=== PATIENT | female | born 1930 | race Caucasian/White ===

== ENCOUNTER 2016-12-27 06:27 | Inpatient (IN) | payer MEDICARE, BC ==
[~2016-12-27] VITALS: Ht 162.6 cm; Wt 67.3 kg
[~2016-12-27 06:27] MED LIST: ACET-2605 PO; ACYC5CRE2 TP; BIMA2.5D5 EACHEYE; BRIM5DRO2 EACHEYE; CALC-20 PO; CITA10TA9 PO; CYAN10009 PO; DONE10TA4 PO; VALS1TAB2 PO
[2016-12-27 07:11] LABS: BASOPHILS % (AUTO) 0.1 % (0.0-2.0); DIFF TOTAL % 100 %; EOSINOPHILS # (AUTO) 0.3 /CMM (0.0-0.7); EOSINOPHILS % (AUTO) 2.4 % (0.0-6.0); HEMATOCRIT 37 % (33-45); HEMOGLOBIN 12.7 g/dL (11.5-14.8); LYMPHOCYTES # (AUTO) 0.6 /CMM (0.8-4.8); LYMPHOCYTES % (AUTO) 5.2 % (20.0-44.0); MEAN CORPUSCULAR HEMOGLOBIN 33 PG (26.0-33.0); MEAN CORPUSCULAR HGB CONC 34 g/dl (31.0-36.0); MEAN CORPUSCULAR VOLUME 95 fL (82-100); MONOCYTES # (AUTO) 0.6 /CMM (0.1-1.30); MONOCYTES % (AUTO) 5.3 % (2.0-12.0); NEUTROPHILS # (AUTO) 9.8 /CMM (1.8-8.9); PLATELET COUNT (AUTO) 266 /CMM (150-450); WHITE BLOOD COUNT (AUTO) 11.3 K/uL (4.3-11.0)
[2016-12-27 07:13] LABS: KETONES,URINE NEGATIVE (NEGATIVE); LEUKOCYTE ESTERASE ,URINE NEGATIVE (NEGATIVE)
[2016-12-27 07:15] LABS: ALANINE AMINOTRANSFERASE 44 U/L (12-78); ALBUMIN 2.9 g/dL (3.4-5.0); ANION GAP 12 (5-14); ASPARTATE AMINOTRANSFERASE 36 U/L (15-37); BILIRUBIN,DIRECT 0.1 mg/dL (0.0-0.2); BILIRUBIN,TOTAL 0.5 mg/dL (0.2-1.0); CARBON DIOXIDE 29 mmol/L (21-32); CHLORIDE 100 mmol/L (98-107); GLUCOSE 124 mg/dL (74-106); INDIRECT BILIRUBIN 0.4 mg/dL (0.0-1.1); SODIUM SERUM 138 mmol/L (136-145); TOTAL PROTEIN, SERUM 6.8 g/dL (6.4-8.2); UREA NITROGEN, BLOOD 23 mg/dL (7-18)
[2016-12-27 07:17] LABS: TROPONIN I < 0.017 ng/mL (0.00-0.056)
[2016-12-27 07:17] LABS: ADD UA MICROSCOPIC YES
[2016-12-27 07:18] LABS: PROTHROMBIN TIME 10.8 SECS (9.5-12.7)
[2016-12-27 07:35] LABS: ADD URINE CULTURE YES; MUCUS,URINE Few /LPF (None Seen); RBC,URINE 0-2 /HPF (0-2)
[2016-12-27 07:37] LABS: POTASSIUM 2.8 mmol/L (3.5-5.1)
[2016-12-27] MEDS ORDERED: POTASSIUM CHLORIDE 20 MEQ TAB.PRT.SR PO ONE ×2 (08:00→08:02)
[2016-12-27] MEDS ORDERED: CYAN25008 SL (08:31)
[2016-12-27] MEDS ORDERED: TRAM50TA2 PO (08:31)
[2016-12-27] MEDS ORDERED: POLY17PO4 PO (08:31)
[2016-12-27] MEDS ORDERED: MUPI22OI7 TP (08:31)
[2016-12-27] MEDS ORDERED: [UNRECOGNIZED DRUG - CODE] PO (08:31)
[2016-12-27] MEDS ORDERED: CITA20TA19 PO (08:31)
[2016-12-27] MEDS ORDERED: LOPE-156 PO (08:31)
[2016-12-27] MEDS ORDERED: HYDR12.55 PO (08:31)
[2016-12-27] MEDS ORDERED: ASPI81TA2 PO (08:31)
[2016-12-27] MEDS ORDERED: SENN8.6T6 PO (08:31)
[2016-12-27] MEDS ORDERED: VALS80TA2 PO (08:31)
[2016-12-27] MEDS ORDERED: CEFTRIAXONE 1GM BAG (ER ONLY) 50 ML IV ONE (08:41)
[2016-12-27] MEDS ORDERED: IV SET PRIMARY 1 EA INFUS.SET MC ONE (08:42)
[2016-12-27] MEDS ORDERED: CEFTRIAXONE 1GM BAG (ER ONLY) 1 GM/50 ML PIGGYBACK IV ONE (09:00)
[2016-12-27 11:00] VITALS: BP 154/79
[2016-12-27] MEDS ORDERED: SENNOSIDES 8.6 MG TABLET PO PRN (11:30)
[2016-12-27] MEDS ORDERED: LOPERAMIDE HCL (2 MG CAP) 2 MG CAPSULE PO PRN (11:30)
[2016-12-27] MEDS ORDERED: POLYETHYLENE GLYCOL 3350 17 GM POWD.PACK PO PRN (11:30)
[2016-12-27] MEDS ORDERED: TRAMADOL HCL 50 MG TABLET PO PRN (11:30)
[2016-12-27] MEDS ORDERED: IV SET PRIMARY PUMP SET 1 EA INFUS.SET MC ONE (11:58)
[2016-12-27] MEDS ORDERED: ACETAMINOPHEN ES 500 MG TABLET PO PRN (12:00)
[2016-12-27] MEDS: CYANOCOBALAMIN 500 MCG TABLET PO SCH (13:42)
[2016-12-27] MEDS: ASPIRIN 81 MG TAB.CHEW PO SCH (13:43)
[2016-12-27] MEDS: VALSARTAN 80 MG TABLET PO SCH (13:43)
[2016-12-27] MEDS: HYDROCHLOROTHIAZIDE 25 MG TABLET PO SCH (13:44)
[2016-12-27] MEDS: CITALOPRAM HYDROBROMIDE 20 MG TABLET PO SCH (13:45)
[2016-12-27 16:00] VITALS: BP 156/99
[2016-12-27] MEDS ORDERED: BRIMONIDINE TARTRATE EACHEYE SCH (17:00)
[2016-12-27] MEDS ORDERED: TIMOLOL EACHEYE SCH (17:00)
[2016-12-27] MEDS: TIMOLOL 0.5% SOLN OPHTH 5 ML BOTTLE EACHEYE SCH (17:39)
[2016-12-27] MEDS: MUPIROCIN OINT 2% 22 GM TUBE TP SCH (17:40)
[2016-12-27] MEDS: BRIMONIDINE TARTRATE OPHT SOLN 5 ML BOTTLE EACHEYE SCH (17:40)
[2016-12-27] MEDS: CALCIUM CARB 600MG /VIT D 1 EACH TABLET PO SCH (17:40)
[2016-12-27] MEDS ORDERED: BIMATOPROST 2.5 ML BOTTLE EACHEYE SCH (18:00)
[2016-12-27] MEDS: DONEPEZIL 5 MG TABLET PO SCH (18:51)
[2016-12-27] MEDS: LATANOPROST EYE DROP 0.005% 2.5 ML BOTTLE EACHEYE SCH (18:52)
[2016-12-27 20:00] VITALS: BP 158/73
[2016-12-28 04:00] VITALS: BP 154/72
[2016-12-28] MEDS: KCL IV PRN ×4 (04:31→19:47)
[2016-12-28] MEDS: D5 IV PRN ×4 (04:31→19:47)
[2016-12-28] MEDS: NS IV PRN ×4 (04:31→19:47)
[2016-12-28 06:53] LABS: BASOPHILS # (AUTO) 0.1 /CMM (0.0-0.2); BASOPHILS % (AUTO) 0.7 % (0.0-2.0); DIFF TOTAL % 100 %; EOSINOPHILS # (AUTO) 0.2 /CMM (0.0-0.7); HEMATOCRIT 38 % (33-45); HEMOGLOBIN 12.6 g/dL (11.5-14.8); LYMPHOCYTES % (AUTO) 12.8 % (20.0-44.0); MEAN CORPUSCULAR HEMOGLOBIN 33 PG (26.0-33.0); MEAN CORPUSCULAR HGB CONC 33 g/dl (31.0-36.0); MEAN CORPUSCULAR VOLUME 98 fL (82-100); MONOCYTES # (AUTO) 0.6 /CMM (0.1-1.30); MONOCYTES % (AUTO) 7.8 % (2.0-12.0); NEUTROPHILS # (AUTO) 6.2 /CMM (1.8-8.9); NEUTROPHILS % (AUTO) 75.7 % (43.0-81.0); PLATELET COUNT (AUTO) 313 /CMM (150-450); RED BLOOD CELL COUNT(AUTO) 3.86 MIL/uL (4.0-5.2); WHITE BLOOD COUNT (AUTO) 8.2 K/uL (4.3-11.0)
[2016-12-28 08:00] VITALS: BP 146/84
[2016-12-28] MEDS: CITALOPRAM HYDROBROMIDE 20 MG TABLET PO SCH (08:25)
[2016-12-28] MEDS: HYDROCHLOROTHIAZIDE 25 MG TABLET PO SCH (08:26)
[2016-12-28] MEDS: CALCIUM CARB 600MG /VIT D 1 EACH TABLET PO SCH ×2 (08:27→17:08)
[2016-12-28] MEDS: ASPIRIN 81 MG TAB.CHEW PO SCH (08:27)
[2016-12-28] MEDS: VALSARTAN 80 MG TABLET PO SCH (08:27)
[2016-12-28] MEDS: CYANOCOBALAMIN 500 MCG TABLET PO SCH (08:28)
[2016-12-28] MEDS: TIMOLOL 0.5% SOLN OPHTH 5 ML BOTTLE EACHEYE SCH ×2 (08:28→17:08)
[2016-12-28] MEDS: BRIMONIDINE TARTRATE OPHT SOLN 5 ML BOTTLE EACHEYE SCH ×2 (08:29→17:08)
[2016-12-28] MEDS: MUPIROCIN OINT 2% 22 GM TUBE TP SCH ×2 (08:29→17:09)
[2016-12-28] MEDS: CEFTRIAXONE 1 G in IV D5W 50 ML IV SCH (08:31)
[2016-12-28] MEDS ORDERED: SECONDARY IV SET 1 EA INFUS.SET MC ONE (08:33)
[2016-12-28 09:21] LABS: CALCIUM, SERUM 8.5 mg/dL (8.5-10.1); CREATININE 0.8 mg/dL (0.6-1.3); POTASSIUM 3.9 mmol/L (3.5-5.1)
[2016-12-28 16:00] VITALS: BP 148/86
[2016-12-28] MEDS: DONEPEZIL 5 MG TABLET PO SCH (17:08)
[2016-12-28] MEDS: LATANOPROST EYE DROP 0.005% 2.5 ML BOTTLE EACHEYE SCH (17:08)
[2016-12-28 20:00] VITALS: BP 162/85
[2016-12-29 08:00] VITALS: BP 168/94
[2016-12-29] MEDS ORDERED: Z GUARD REMEDY 2 OZ OINT TP PRN (09:00)
[2016-12-29] MEDS: BRIMONIDINE TARTRATE OPHT SOLN 5 ML BOTTLE EACHEYE SCH ×2 (09:47→17:18)
[2016-12-29] MEDS: LATANOPROST EYE DROP 0.005% 2.5 ML BOTTLE EACHEYE SCH (09:47)
[2016-12-29] MEDS: TIMOLOL 0.5% SOLN OPHTH 5 ML BOTTLE EACHEYE SCH ×2 (09:47→17:19)
[2016-12-29] MEDS: CEFTRIAXONE 1 G in IV D5W 50 ML IV SCH (09:48)
[2016-12-29] MEDS: CALCIUM CARB 600MG /VIT D 1 EACH TABLET PO SCH ×2 (09:49→17:18)
[2016-12-29] MEDS: VALSARTAN 80 MG TABLET PO SCH (09:49)
[2016-12-29] MEDS: CYANOCOBALAMIN 500 MCG TABLET PO SCH (09:49)
[2016-12-29] MEDS: HYDROCHLOROTHIAZIDE 25 MG TABLET PO SCH (09:49)
[2016-12-29] MEDS: CITALOPRAM HYDROBROMIDE 20 MG TABLET PO SCH (09:50)
[2016-12-29] MEDS: ASPIRIN 81 MG TAB.CHEW PO SCH (09:50)
[2016-12-29] MEDS: MUPIROCIN OINT 2% 22 GM TUBE TP SCH ×2 (09:53→17:20)
[2016-12-29] MEDS: Z GUARD REMEDY 2 OZ OINT TP SCH ×2 (10:12→17:20)
[2016-12-29] MEDS: NEOMY SULF/BACITRAC ZN/POLY 15 GM TUBE TP SCH (10:13)
[2016-12-29 16:00] VITALS: BP 197/88
[2016-12-29] MEDS ORDERED: NITROGLYCERIN 30 GM TUBE TP STA (16:56)
[2016-12-29] MEDS: D5 IV PRN ×2 (17:17)
[2016-12-29] MEDS: KCL IV PRN ×2 (17:17)
[2016-12-29] MEDS: NS IV PRN ×2 (17:17)
[2016-12-29] MEDS: DONEPEZIL 5 MG TABLET PO SCH (17:18)
[2016-12-29] MEDS: DOXAZOSIN MESYLATE (1 MG) 1 MG TABLET PO SCH (18:56)
[2016-12-29] MEDS: NIFEdipine (10MG) 10 MG CAPSULE PO SCH (18:57)
[2016-12-29 20:00] VITALS: BP 102/60
[2016-12-29 22:00] VITALS: BP 102/60
[2016-12-30 08:00] VITALS: BP 133/66
[2016-12-30] MEDS: VALSARTAN 80 MG TABLET PO SCH (08:34)
[2016-12-30] MEDS: CALCIUM CARB 600MG /VIT D 1 EACH TABLET PO SCH (08:34)
[2016-12-30] MEDS: ASPIRIN 81 MG TAB.CHEW PO SCH (08:34)
[2016-12-30] MEDS: CYANOCOBALAMIN 500 MCG TABLET PO SCH (08:34)
[2016-12-30 08:35] VITALS: BP 133/66
[2016-12-30] MEDS: NIFEdipine (10MG) 10 MG CAPSULE PO SCH (08:35)
[2016-12-30] MEDS: CITALOPRAM HYDROBROMIDE 20 MG TABLET PO SCH (08:35)
[2016-12-30] MEDS: DOXAZOSIN MESYLATE (1 MG) 1 MG TABLET PO SCH (08:35)
[2016-12-30] MEDS: HYDROCHLOROTHIAZIDE 25 MG TABLET PO SCH (08:35)
[2016-12-30] MEDS: CEFTRIAXONE 1 G in IV D5W 50 ML IV SCH (08:58)
[2016-12-30] MEDS: BRIMONIDINE TARTRATE OPHT SOLN 5 ML BOTTLE EACHEYE SCH (08:59)
[2016-12-30] MEDS: TIMOLOL 0.5% SOLN OPHTH 5 ML BOTTLE EACHEYE SCH (08:59)
[2016-12-30] MEDS: NEOMY SULF/BACITRAC ZN/POLY 15 GM TUBE TP SCH (09:00)
[2016-12-30] MEDS: Z GUARD REMEDY 2 OZ OINT TP SCH (09:00)
[2016-12-30] MEDS: MUPIROCIN OINT 2% 22 GM TUBE TP SCH (09:01)
[2016-12-30] MEDS ORDERED: NITROFURANTOIN/NITROFURAN MAC 100 MG CAPSULE PO SCH (14:30)
== END 2016-12-30 15:12 | DRG 690 ==
LOC: ER 06:29 → MED 09:41
PROVIDERS: ADMIT Internal Medicine Nephrology; ATTEND Internal Medicine Nephrology
DX: N39.0 Urinary tract infection, site not specified (principal); E87.6 Hypokalemia; F03.90 Unspecified dementia, unspecified severity, without behavioral disturbance, psychotic disturbance, mood disturbance, and anxiety; T14.8 Other injury of unspecified body region; W19.XXXA Unspecified fall, initial encounter; Y92.129 Unspecified place in nursing home as the place of occurrence of the external cause; I10 Essential (primary) hypertension; Z86.73 Personal history of transient ischemic attack (TIA), and cerebral infarction without residual deficits; M19.90 Unspecified osteoarthritis, unspecified site
CPT/HCPCS: 36415; 70450-TC; 71010-TC; 72125-TC; 80048-TC; 80076-TC; 81000-TC; 84484-TC; 85025-TC; 85730-TC; 87081-TC; 87086-TC; 87186-TC; 94799-TC; 97001-TC; 97110-TC; 97530-TC; A4606; J0696; J3480; J7042; J7060; Z7610